=== PATIENT | male | born 1970 | race Caucasian/White ===

== ENCOUNTER 2019-03-09 16:57 | Emergency (ER) | payer MEDICARE, BC ==
[2019-03-09] MEDS: LORAZEPAM 2 MG INJ IM (18:09)
[2019-03-09] MEDS: SOD CHLORIDE 0.9% 1,000 ML IV ×2 (19:40→21:13)
== END 2019-03-10 00:27 | disposition home or self-care (01) ==
LOC: E/R 03-10 00:27
DX: F10.120 Alcohol abuse with intoxication, uncomplicated (principal); R40.2142 Coma scale, eyes open, spontaneous, at arrival to emergency department; R40.2362 Coma scale, best motor response, obeys commands, at arrival to emergency department; R40.2232 Coma scale, best verbal response, inappropriate words, at arrival to emergency department; F17.210 Nicotine dependence, cigarettes, uncomplicated
CPT/HCPCS: 96372; 99284-25